=== PATIENT | female | born 1940 | race Caucasian/White ===

== ENCOUNTER 2017-05-09 09:47 | Day surgery (SDC) | payer MEDICARE, BC ==
[~2017-05-09] VITALS: Ht 157.5 cm; Wt 64.0 kg
[~2017-05-09 09:47] MED LIST: CAND16TA2 PO; CHOL200016 PO; FLUT16SP2 BOTHNARES; LEVO300T2 PO; OMEG-107 PO; OMEG1CAP21 PO; OMEP10CA4 PO; SYN0.088T PO; TURM538C PO; VANCOMYCIN INJ 1000 MG in NORMAL SALINE 250ml IV.SOLN IV ONE; VITA-268 PO; [UNRECOGNIZED DRUG - OTHER] PO; cefazolin/dext.iso 2gm/50ml 50 ML IV ONE; famotidine 20mg tablet PO ONE; meperidine/PF 25mg/ml syringe IV PRN; morphine sulfate 8 MG/ML SYRINGE IV PRN; proCHLORperazine 10 MG/2 ml inj IV PRN; ringers solution, lacted 1,000 ML IV SCH
[2017-05-09 10:00] VITALS: BP 197/103
[2017-05-09] MEDS ORDERED: LIDOcaine 1% (10mg/ml) 2ml vial ONE (10:47)
[2017-05-09] MEDS ORDERED: HYDR-4070 PO (11:42)
[2017-05-09] MEDS ORDERED: BUPIVAcaine/PF 2.5 mg/ml (0.25%) 30ml vial ONE (11:46)
[2017-05-09] MEDS ORDERED: LIDOcaine 1% 30ml vial ONE (12:23)
[2017-05-09] MEDS ORDERED: fentaNYL/PF 50MCG/1 ML 2ML syringe ONE (12:42)
[2017-05-09] MEDS ORDERED: MIDAZolam 5mg/5ml vial ONE (12:42)
[2017-05-09] MEDS ORDERED: ketorolac trometh. 30mg/ml inj. ONE (12:46)
[2017-05-09] MEDS ORDERED: 0.9 % SODIUM CHLORIDE 10 ML VIAL ONE ×2 (12:52)
[2017-05-09 14:05] VITALS: BP 144/92
[2017-05-09 14:15] VITALS: BP 157/97
[2017-05-09 14:25] VITALS: BP 158/94
[2017-05-09 14:35] VITALS: BP 154/90
[2017-05-09 14:45] VITALS: BP 143/83
[2017-05-27] MEDS ORDERED: CYCL-1 PO (23:43)
[2017-05-27] MEDS ORDERED: OXYC-145 PO (23:43)
== END 2017-05-09 14:45 | disposition home or self-care (01) ==
LOC: PAS 09:47
PROVIDERS: ATTEND Orthopaedic Surgery
DX: S66.118A Strain of flexor muscle, fascia and tendon of other finger at wrist and hand level, initial encounter (principal); M67.431 Ganglion, right wrist; I10 Essential (primary) hypertension; Z88.2 Allergy status to sulfonamides; X58.XXXA Exposure to other specified factors, initial encounter; Y93.9 Activity, unspecified; Y92.9 Unspecified place or not applicable
CPT/HCPCS: 25111; 25260; A6449; J0690; J1885; J2250; J3010; J3370; J3490; J7120; 88304; A6250; A7000

== ENCOUNTER 2017-06-08 16:32 | Emergency (ER) | payer MEDICARE, OTHER ==
[~2017-06-08] VITALS: Ht 157.5 cm; Wt 64.5 kg
[~2017-06-08 16:32] MED LIST changes: +CYCL-1 PO; +HYDR-4070 PO; +OXYC-145 PO; -VANCOMYCIN INJ 1000 MG in NORMAL SALINE 250ml IV.SOLN IV ONE; -cefazolin/dext.iso 2gm/50ml 50 ML IV ONE; -famotidine 20mg tablet PO ONE; -meperidine/PF 25mg/ml syringe IV PRN; -morphine sulfate 8 MG/ML SYRINGE IV PRN; -proCHLORperazine 10 MG/2 ml inj IV PRN; -ringers solution, lacted 1,000 ML IV SCH
[2017-06-08] MEDS ORDERED: predniSONE 20 mg tablet PO ONE (17:30)
[2017-06-08] MEDS ORDERED: orphenadrine citrate 60mg/2ml inj. IM ONE (17:30)
[2017-06-08] MEDS ORDERED: PRED20TA PO (17:31)
[2017-06-08] MEDS ORDERED: ORPH100T2 PO (17:31)
[2017-06-08] MEDS ORDERED: HYDR-565 PO (17:31)
[2017-06-08] MEDS: ondansetron 4mg rapidly disintigrating tab PO ONE ×2 (17:55→17:59)
[2017-06-08 18:35] VITALS: BP 187/101
== END 2017-06-08 18:40 | disposition home or self-care (01) ==
LOC: ER 16:32
DX: M54.31 Sciatica, right side (principal); I10 Essential (primary) hypertension; Z88.2 Allergy status to sulfonamides; Z88.5 Allergy status to narcotic agent; Z88.8 Allergy status to other drugs, medicaments and biological substances; Z88.6 Allergy status to analgesic agent; Z88.1 Allergy status to other antibiotic agents; Z91.012 Allergy to eggs; Z98.890 Other specified postprocedural states; Z79.899 Other long term (current) drug therapy
CPT/HCPCS: 96372; 96374; 99284; J2270; J2360; J7512

== ENCOUNTER 2017-06-19 21:19 | Emergency (ER) | payer MEDICARE, OTHER ==
[~2017-06-19] VITALS: Ht 157.5 cm; Wt 65.0 kg
[~2017-06-19 21:19] MED LIST changes: +HYDR-565 PO; +ORPH100T2 PO; +PRED20TA PO
[2017-06-19] MEDS ORDERED: HYDROmorphone 2mg tablet PO ONE (22:15)
[2017-06-19] MEDS ORDERED: ondansetron 4mg rapidly disintigrating tab PO ONE (22:15)
[2017-06-19 22:40] VITALS: BP 148/108
== END 2017-06-19 22:30 | disposition home or self-care (01) ==
LOC: ER 21:19
DX: M54.41 Lumbago with sciatica, right side (principal); G89.29 Other chronic pain; I10 Essential (primary) hypertension; Z88.2 Allergy status to sulfonamides; Z88.1 Allergy status to other antibiotic agents; Z79.899 Other long term (current) drug therapy
CPT/HCPCS: 99283